=== PATIENT | female | born 1960 | race Caucasian/White ===

== ENCOUNTER 2022-02-08 11:47 | Emergency (ER) | payer MEDICAID, OTHER ==
[~2022-02-08] VITALS: Ht 152.4 cm; Wt 45.4 kg
[~2022-02-08 11:47] MED LIST: LEVO150T PO
[2022-02-08] MEDS ORDERED: CLIN300C12 PO (12:12)
[2022-02-08] MEDS ORDERED: LEVO150T PO (12:12)
--- NOTE | 2022-02-08 12:13 | NUR ---
Patient discharged to home in stable condition. Written and verbal after care instructions given. Patient verbalizes understanding of instructions. Stressed follow up or return to ER for worsening s/s.
== END 2022-02-08 12:13 | disposition home or self-care (01) ==
LOC: ER 11:47
DX: K02.9 Dental caries, unspecified (principal); I10 Essential (primary) hypertension; Z59.00 Homelessness unspecified
CPT/HCPCS: A4663

== ENCOUNTER 2023-09-02 11:34 | Emergency (ER) | payer MEDICAID, OTHER ==
[~2023-09-02] VITALS: Ht 152.4 cm; Wt 45.4 kg
[~2023-09-02 11:34] MED LIST changes: +CLIN300C12 PO
[2023-09-02] MEDS ORDERED: LEVO150T PO (12:05)
[2023-09-02] MEDS ORDERED: PENI500T PO (12:05)
[2023-09-02] MEDS ORDERED: IBUP-1955 PO (12:05)
[2023-09-02 12:19] VITALS: BP 130/70; O2SAT 97
== END 2023-09-02 12:21 | disposition home or self-care (01) ==
LOC: ER 11:34
DX: K02.9 Dental caries, unspecified (principal); E03.9 Hypothyroidism, unspecified; I10 Essential (primary) hypertension; Z76.0 Encounter for issue of repeat prescription; Z79.899 Other long term (current) drug therapy; Z60.2 Problems related to living alone
CPT/HCPCS: A4606; A4663

== ENCOUNTER 2024-06-01 11:58 | Emergency (ER) | payer OTHER ==
[~2024-06-01] VITALS: Ht 152.4 cm; Wt 46.3 kg
[~2024-06-01 11:58] MED LIST changes: +IBUP-1955 PO; +PENI500T PO
[2024-06-01] MEDS ORDERED: CLIN300C12 PO (12:26)
[2024-06-01 12:45] VITALS: BP 139/84; O2SAT 98
== END 2024-06-01 12:47 | disposition home or self-care (01) ==
LOC: ER 11:58
DX: K02.9 Dental caries, unspecified (principal); K03.2 Erosion of teeth; Z76.0 Encounter for issue of repeat prescription; I10 Essential (primary) hypertension; E03.9 Hypothyroidism, unspecified; Z79.1 Long term (current) use of non-steroidal anti-inflammatories (NSAID); Z79.899 Other long term (current) drug therapy; Z60.2 Problems related to living alone
CPT/HCPCS: A4606; A4663